=== PATIENT | female | born 1960 | race Caucasian/White ===

== ENCOUNTER 2023-12-10 20:18 | Emergency (ER) | payer OTHER, SELFPAY ==
[2023-12-10 20:20] VITALS: BP 157/103
--- NOTE | 2023-12-10 20:57 | ED.GENMED ---
History of Present Illness
General
Chief Complaint: Swelling
Source: patient
Exam Limitations: none
Time Seen by Provider: 12/10/23 20:47
History of Present Illness
History of Present Illness:
This is a 62 year old female that comes in with multiple complaints. States that she started today with feeling like her legs were going to explode. States that they are swelling and that she just doesn't feel good. States that she has some chest
tightness, SOB and a headache. Denies any fever, chills, abd pain, nausea, vomiting, diarrhea, dizziness, urinary burning.
Past History
Past History
ED Past Medical History: None
ED Past Surgical History: Gynecological (Ovarian cyst removed) and Orthopedic (Right Rotator cuff, Neuroma from foot removed, Pelvic Fractures)
Social History
Tobacco: Non-smoker
Alcohol: Occasional
Drug: None
Personal: Single
Living: with family
Employment: Employed
Family History
Family History: Other (Noncontributory)
Review of Systems
Review of Systems
All Other Systems: ROS reviewed and negative except as documented in HPI and ROS
Constitutional: Reports no symptoms; Denies fever or chills
EENT: Reports no symptoms
Respiratory: Reports trouble breathing; Denies cough
Cardiac: Reports chest pain
ABD/GI: Reports no symptoms; Denies abdominal pain, nausea, vomiting or diarrhea
: Reports no symptoms; Denies dysuria, frequency or urgency
Musculoskeletal: Reports no symptoms
Skin: Reports no symptoms
Neurological: Reports headache; Denies dizzy
Psychiatric: Reports no symptoms
Phy Exam
General Physical Exam
General Presentation: no apparent distress
General age: appears stated age
General Skin: warm and dry
General Habitus: normal
General Mental: alert
General Hydration: dry mucous membranes
ENT Exam
ENT Exam: TM's normal, pharynx normal and neck supple
Eye Exam
Eye Exam: EOMI
Cardiovascular Exam
Cardiovascular Exam: regular rate/rhythm, no murmur and normal peripheral pulses
Pulmonary Exam
Pulmonary Exam: lungs clear, no respiratory distress, no rales, chest non tender, no crackles, no rhonchi, no wheezing and no cough
Gastrointestinal Exam
Gastrointestinal Exam: normal bowel sounds, non tender, soft, no organomegaly, no pulsatile mass and non distended
Musculoskeletal Exam
Musculoskeletal Exam: full ROM and edema (+1 pitting edema of the lower legs)
Skin Exam
Skin Exam: normal color, warm/dry, no rash and no petechia
Psychiatric Exam
Psychiatric Exam: normal mood/affect
Scores
Heart Failure Risk
Heart Failure Risk Score: Not Applicable
Course
Orders/Labs/Results
Orders:
Orders
12/10/23 20:24
ECG [Electrocardiogram (*1)] Urgent
Reason for Study: Shortness of Breath
EKG- Treatment ONCE
12/10/23 20:56
US Legs, Bilateral [US Periph Venous LOWER Ext [place]] Urgent
Comment:
Reason For Exam: Pain and swelling
12/10/23 20:57
CR Chest - 2 Views Urgent
Comment:
Reason For Exam: SOB, chest tightness
12/10/23 21:46
COVID-19 Antigen Urgent
Source: Nasal Swab
Complete Blood Count/With Diff Urgent
Comprehensive Metabolic Panel Urgent
NT-proBNP Urgent
Troponin I Urgent
12/10/23 21:47
Urinalysis Reflex To Culture Urgent
Date Specimen was Collected: 12/10/23
Time Specimen was Collected: 21:46
Abnormal Lab Results
12/10/23
21:46
RBC 3.73 L 10^6/uL
(4.20-5.40)
Hgb 11.6 L g/dL
(12.0-16.0)
Hct 32.2 L %
(37.0-47.0)
MCH 31.1 H pg
(27.0-31.0)
Monocytes % 9.6 H %
(1.7-9.3)
Potassium 3.3 L mmol/L
(3.5-5.1)
BUN 23 H mg/dl
(7-17)
Glucose 125 H mg/dl
(70-99)
AST 61 H U/L
(14-36)
ALT 91 H U/L
(0-35)
12/10/23 21:46
12/10/23 21:46
H/H slightly low. Potassium slightly low. Dehydration. Glucose nonfasting. AST?ALT mild elevation. Troponin <0.012, Pro-BNP 255, Urine negative for infection. COVID negative.
Vital Signs
Initial and Last Documented VS:
Initial Vital Signs
Pulse Resp BP Pulse Ox
93 18 157/103 97
12/10/23 20:20 12/10/23 20:20 12/10/23 20:20 12/10/23 20:20
Last Documented Vital Signs
Pulse Resp BP Pulse Ox
93 18 157/103 97
12/10/23 20:20 12/10/23 20:20 12/10/23 20:20 12/10/23 20:20
MDM/Problems Addressed
Differential Diagnosis Includes:
DVT, COVID,
MDM/Problems Addressed:
This is a 62 year old female that comes in with c/o feeling like her legs are going to explode and that she has some chest tightness and SOB. States that she also has a headache
Will check labs. COVID, Chest x-ray and US bilateral legs.
Back into see patient. Reviewed all findings. Patient was aware of her Bakers cyst. Patient to follow up with the family doctor for further evaluiation. Elevate her legs during the day and try wearing SKYE stockings. Return with any concerns.
Chronic conditions affecting care:
NA
Acute Exacerbation and/or Progression of Chronic Illness:
NA
*Radiology
Radiology exam reviewed: radiology read reviewed (Chest-No evidence of active cardiopulmonary disease. US- NO evidence of deep venous thrombosis bilaterally. Left popliteal fossa Cochran's cyst)
*Pulse Oximetry
Patient hypoxic: no
*EKG
Interpreted by ED Provider?: Yes
Heart Rate: 79
Rate: normal
Rhythm: sinus
[place]: normal axis
Interval: normal interval
QRS Pattern: normal QRS
Ischemia: no ischemia
*Critical Care Note
Total Time (30-74mins, 75-104mins- exclusive of procedures): Not Applicable
ED Attending Note
-
Portions of this chart may have been created with voice recognition software.� Occasional wrong word or��sound alike� substitutions may have occurred due to the inherent limitations of voice recognition software.
Discharge Plan
Departure
Patient Disposition: Home (Routine Discharge)
Date of Disposition: 12/10/23
Time of Disposition: 22:54
Patient with high blood pressure during this ER visit?: Yes
Condition: Good
Covid-19: Negative COVID-19
Discharge Problem:
Dependent edema, SOB (shortness of breath)
Instructions: Dependent Edema (DC), Shortness of Breath, Adult ED
Prescriptions:
No Action
ondansetron 4 MG tablet,disintegrating
4 mg PO QIDPRN PRN (Reason: nausea/vomiting) Qty: 10 0RF
Referrals:
Simba Serrato MD [Family Provider] - Follow up in 2-3 days
Activity Restrictions/Additional Instructions:
As discussed, your blood work shows that you are a little dehydrated. Your potassium is a little low. Please eat a daily banana. Your Liver enzymes are very slightly elevated. Your Urine is negative for infection and your chest X-ray is normal. Your
US is negative for any blood clots but you do have a left bakers cyst. Please try wearing SKYE stocking. Elevate your legs throughout the day to help decrease any swelling. Follow up with the family doctor for recheck. IF YOU HAVE INCREASED SHORTNESS
OF BREATH, SWELLING OR YOU HAVE ANY OTHER CONCERNS PLEASE RETURN TO THE EMERGENCY ROOM.
Interventions
Interventions:
*Risk Screen - Suicide Last Done: 12/10/23 20:20
*General Assessment Last Done: 12/10/23 20:20
*Neglect/Abuse Screening Last Done: 12/10/23 20:20
ED- Cardiac Assessment Last Done: 12/10/23 22:29
ED- Pulmonary Assessment Last Done: 12/10/23 22:29
ED-Skin Assessment Last Done: 12/10/23 22:29
Discharge Date and Time
Print Language: HAITIAN
[2023-12-10 21:45] VITALS: BP 129/79
[2023-12-10 22:00] VITALS: BP 124/73
[2023-12-10 22:00] LABS: % Basophils 0.7 % (0-2); % Eosinophils 3.7 % (0-6); % Immature Granulocytes 0.3 % (0-0.5); % Lymphocytes 35.3 % (20.5-51.1); % Monocytes 9.6 % (1.7-9.3); % Neutrophils 50.4 % (42.2-75.2); Absolute Basophils 0.1 10^3/uL (0-0.2); Absolute Eosinophils 0.3 10^3/uL (0-0.7); Absolute Lymphocytes 2.4 10^3/uL (1.2-3.4); Absolute Monocytes 0.6 10^3/uL (0.1-0.6); Absolute Neutrophils 3.4 10^3/uL (1.4-6.5); Hematocrit 32.2 % (37.0-47.0); Hemoglobin 11.6 g/dL (12.0-16.0); Mean Corpuscular Hgb 31.1 pg (27.0-31.0); Mean Corpuscular Volume 86.3 fL (81.0-99.0); Mean Platelet Volume 9.6 fL (7.4-10.4); Nucleated Red Blood Cells % 0 %; Platelet Count 217 10^3/uL (130-400); Red Blood Cell Count 3.73 10^6/uL (4.20-5.40); Red Cell Dist. Width 13.3 % (11.5-14.5); White Blood Cell Count 6.7 10^3/uL (4.8-10.8)
[2023-12-10 22:00] LABS: Urine Albumin Negative (Neg - Trace); Urine Bilirubin Negative (Negative); Urine Character Clear (Clear); Urine Color Straw; Urine Glucose Negative (Negative); Urine Ketone Negative (Negative); Urine Leukocyte Negative (Negative); Urine Nitrite Negative (Negative); Urine Occult Blood Negative (Negative); Urine Urobilinogen Negative (Neg - 1+)
[2023-12-10 22:16] LABS: ALT (SGPT) 91 U/L (0-35); AST (SGOT) 61 U/L (14-36); Albumin 4.2 g/dl (3.5-5.0); Alkaline Phosphatase 107 U/L (38-126); Blood Urea Nitrogen 23 mg/dl (7-17); COVID-19 Antigen Negative (Negative); Calcium 9.9 mg/dl (8.4-10.2); Carbon Dioxide 27 mmol/L (22-30); Chloride 106 mmol/L (98-107); Glucose 125 mg/dl (70-99); Potassium 3.3 mmol/L (3.5-5.1); Sodium 142 mmol/L (135-145); Total Bilirubin 0.4 mg/dl (0.2-1.3); Total Protein 6.6 g/dl (6.3-8.2); eGFR > 60.00
[2023-12-10 22:24] LABS: NT-proBNP 255 pg/ml; Troponin I < 0.012 ng/ml
== END 2023-12-10 23:21 | disposition home or self-care (01) ==
LOC: EMR 20:18
PROVIDERS: Clinical Nurse Specialist Family Health; EMERGENCY PHYSICIAN Emergency Medicine; FAMILY PHYSICIAN Family Medicine
DX: R60.0 Localized edema (principal); R06.02 Shortness of breath; R51.9 Headache, unspecified; R07.89 Other chest pain; Z11.52 Encounter for screening for COVID-19; R03.0 Elevated blood-pressure reading, without diagnosis of hypertension; E86.0 Dehydration; M71.22 Synovial cyst of popliteal space [Baker], left knee; Z91.048 Other nonmedicinal substance allergy status
CPT/HCPCS: 99284; 71046; 80053; 81003; 83880; 84484; 85025; 87811; 93005; 93970